=== PATIENT | male | born 1965 | race Two or more races ===

== ENCOUNTER 2020-02-13 14:26 | Inpatient (IN) | payer OTHER ==
[~2020-02-13] VITALS: Ht 180.3 cm; Wt 95.2 kg
[2020-02-13 15:22] LABS: Basophils # (auto) 0.1 10 ^3/uL (0-0.2); Basophils % (auto) 0.7 % (0.0-2.0); Eosinophils # (auto) 0.1 10 ^3/uL (0-0.8); Hematocrit 44.5 % (41.0-53.0); Lymphocytes # (auto) 2.9 10 ^3/uL (0.4-5.4); Lymphocytes % (auto) 32.5 % (10.0-50.0); Mean Corpuscular Hgb Conc. 33.7 g/dL (32.0-36.0); Mean Corpuscular Volume 82.9 fL (80.0-100.0); Monocytes # (auto) 0.6 10 ^3/uL (0-1.3); Monocytes % (auto) 7.1 % (0.0-12.0); Neutrophils # (auto) 5.2 10 ^3/uL (1.6-8.6); Neutrophils % (auto) 58.7 % (37.0-80.0); Nucleated Red Blood Cells % 0.1 %; Platelet Count (auto) 236 10^3/uL (140-450); Red Blood Cells 5.37 10^6/uL (4.5-5.90); Red Cell Distribution Width 14.4 % (11.8-14.3); White Blood Cell 8.9 10^3/uL (4.4-10.8)
[2020-02-13 15:40] LABS: Alanine Aminotransferase 22 U/L (16-61); Albumin 3.8 g/dL (3.4-5.0); Anion Gap 6 (5-15); BUN/Creatinine Ratio 16.8; Blood Urea Nitrogen 20 mg/dL (7-18); Calcium 8.7 mg/dL (8.5-10.1); Carbon Dioxide 26 mmol/L (21-32); Chloride 106 mmol/L (98-107); GFR African American 82 mL/min; GFR Non-African American 68 mL/min; Glucose 78 mg/dL (74-106); Magnesium 2.3 mg/dL (1.6-2.6); Potassium 3.3 mmol/L (3.5-5.1); Sodium 138 mmol/L (136-145)
[2020-02-13 15:46] LABS: Alkaline Phosphatase 67 U/L (45-117); Aspartate Aminotransferase 18 U/L (15-37); Bilirubin, Total 0.5 mg/dL (0.2-1.0)
[2020-02-13] MEDS ORDERED: ONDANSETRON HCL 4 MG/2 ML VIAL IV PRN (16:45)
[2020-02-13] MEDS ORDERED: NITROGLYCERIN 0.4 MG SL TAB SL PRN (16:45)
[2020-02-13] MEDS ORDERED: D5W/SOD CHL 0.45% 1,000 ML IV ONE (16:45)
--- NOTE | 2020-02-13 18:10 | NUR ---
PATIENT UP TO FLOOR FROM ER. Telemetry admit from ER MATT VASQUEZ admitted to Telemetry unit after SBAR received FROM [facility]. Patient oriented to DAO MCNEIL RN primary RN, unit, ROOM AND BED 244-5 and unit policies regarding patient care. Patient now on continuous telemetry monitoring, tele box # 12 and telemetry reading on arrival to unit is SINUS BRADYCARDIA. Patient weighed by bedscale and encouraged to call if they need ANY ASSISTANCE. All questions and concerns addressed, patient verbalized understanding.
[2020-02-13 19:00] VITALS: BP 132/82
--- NOTE | 2020-02-13 19:42 | NUR ---
DR. Wenceslao VASQUEZ AT BEDSIDE FOR CARDIOLOGY CONSULT
--- NOTE | 2020-02-13 20:10 | NUR ---
Notified MD Wolf that patient appeared to be in 2nd degree, type 1 HB and was asymptomatic. MD Wolf said patient would be having Cardiolite stress test.
[2020-02-13] MEDS ORDERED: HCTZ 25 MG TAB PO ONE (20:15)
--- NOTE | 2020-02-13 21:50 | NUR ---
Care endorsed to NEHEMIAS Thompson.
[2020-02-13 22:00] VITALS: BP 129/75
[2020-02-13] MEDS: TERAZOSIN HCL 1 MG CAP PO SCH (22:00)
[2020-02-13] MEDS ORDERED: TERA10CA36 PO (23:07)
[2020-02-14] MEDS: ATORVASTATIN 20 MG TAB PO SCH ×2 (00:04→22:21)
--- NOTE | 2020-02-14 01:30 | NUR ---
Received report from Tele automatic beading lathe operator - Patient's Cardiac rhythm, 3rd degree HB with HR sustained in the high 40s. Patient denies chest pain, lightheadedness, and shortness. Telephone placed to Dr. Aris philippe; awaiting call back.
--- NOTE | 2020-02-14 02:05 | NUR ---
EKG indicates: Second degree AV block Type 11. Patient continues to deny chest pain, Shortness of breath, and dizziness.
[2020-02-14] MEDS ORDERED: ATROPINE SULF 1 MG/10ml SYR IV ONE ×4 (04:45→05:45)
--- NOTE | 2020-02-14 04:50 | NUR ---
Dr. Wolf notified of patient's status. New order obtained for Atropine 1 mg IVP PRN for HR < 30. Patient is currently 2nd degree HB with HR 47. No distress noted.
[2020-02-14 05:00] VITALS: BP 122/78
[2020-02-14 06:17] LABS: Basophils # (auto) 0 10 ^3/uL (0-0.2); Basophils % (auto) 0.4 % (0.0-2.0); Eosinophils # (auto) 0.1 10 ^3/uL (0-0.8); Eosinophils % (auto) 1.9 % (0.0-7.0); Hematocrit 42.7 % (41.0-53.0); Hemoglobin 14.4 g/dL (13.5-17.5); Lymphocytes # (auto) 2.5 10 ^3/uL (0.4-5.4); Lymphocytes % (auto) 37.3 % (10.0-50.0); Mean Corpuscular Hemoglobin 27.9 pg (28.0-32.0); Mean Corpuscular Hgb Conc. 33.8 g/dL (32.0-36.0); Mean Corpuscular Volume 82.6 fL (80.0-100.0); Monocytes # (auto) 0.5 10 ^3/uL (0-1.3); Monocytes % (auto) 7.4 % (0.0-12.0); Neutrophils # (auto) 3.5 10 ^3/uL (1.6-8.6); Platelet Count (auto) 229 10^3/uL (140-450); Red Blood Cells 5.17 10^6/uL (4.5-5.90); Red Cell Distribution Width 14.4 % (11.8-14.3); White Blood Cell 6.6 10^3/uL (4.4-10.8)
[2020-02-14 06:28] LABS: Potassium 3.3 mmol/L (3.5-5.1)
[2020-02-14 06:36] LABS: Albumin 3.6 g/dL (3.4-5.0); BUN/Creatinine Ratio 15.6; Bilirubin, Total 0.8 mg/dL (0.2-1.0); Calcium 8.5 mg/dL (8.5-10.1); Total Protein 7.3 g/dL (6.4-8.2)
--- NOTE | 2020-02-14 07:00 | NUR ---
Patient resting comfortably no distress noted; Cardiac rhythm - 2nd AVB Type I; HR 59. Patient's status endorsed to AM RN.
[2020-02-14 09:00] VITALS: BP 121/73
[2020-02-14] MEDS: ASPirin 81 mg TAB PO SCH (10:10)
[2020-02-14] MEDS: TERAZOSIN HCL 1 MG CAP PO SCH ×2 (10:10→22:21)
[2020-02-14] MEDS: HCTZ 25 MG TAB PO SCH (10:10)
[2020-02-14] MEDS: ENOXAPARIN SOD 40 MG/0.4 ML SYRINGE SC SCH (10:11)
[2020-02-14] MEDS ORDERED: POTASSIUM CHL 20 Meq TABLET PO ONE (10:45)
[2020-02-14 12:57] VITALS: BP 125/66
[2020-02-14 17:00] VITALS: BP 142/80
--- NOTE | 2020-02-14 19:00 | NUR ---
Opening Shift Note Assumed care of patient, awake and alert. No S/S of distress/SOB or pain. Instructed on POC and to call for assist PRN, will continue to monitor for changes Q1hr and PRN. Patient Pt in lowest possible position with call light within reach.
--- NOTE | 2020-02-14 19:13 | NUR ---
EKG patients 0735 EKG showed a 3/AVB, and heart rate of heart rate of 33bpm. Dr. Hurst has been notified.
[2020-02-14 20:00] VITALS: BP 116/82
--- NOTE | 2020-02-14 20:50 | NUR ---
Telemetry strip read vtach Patient was lying in bed when started running vtach. Patient did not complain of pain, SOB, or any other symptoms. Patients bpm went up to 170, and at time of telemetry reading was 118. Patient was in vtach for around [address] Wolf paged. Dr Hurst notified, no orders given. Will wait for call from Dr. Wolf and will continue to monitor patient.
--- NOTE | 2020-02-14 21:11 | NUR ---
EKG done. Pt had a run of [employer] EKG shows 2/AVB mobitz 2 with a heart rate of 63 and with nonspecific T abnormalities. Will notify MD. Will continue to monitor patient. Heart rate currently 58. Addendum: 02/14/20 at 2222 by Taisha Almeida RN Pt denies pain, SOB, or any symptoms at this time. Addendum: 02/14/20 at 2253 by Taisha Almeida RN MD Dr. Hurst notified. Will wait for MD Dr. Luciano wisdom.
[2020-02-14 22:00] VITALS: BP 116/82
[2020-02-15 05:34] VITALS: BP 125/91
[2020-02-15 07:31] LABS: Basophils # (auto) 0 10 ^3/uL (0-0.2); Basophils % (auto) 0.5 % (0.0-2.0); Eosinophils # (auto) 0.1 10 ^3/uL (0-0.8); Eosinophils % (auto) 1.5 % (0.0-7.0); Hematocrit 44.7 % (41.0-53.0); Hemoglobin 14.8 g/dL (13.5-17.5); Lymphocytes # (auto) 2.3 10 ^3/uL (0.4-5.4); Lymphocytes % (auto) 30.2 % (10.0-50.0); Mean Corpuscular Hemoglobin 27.6 pg (28.0-32.0); Mean Corpuscular Hgb Conc. 33.1 g/dL (32.0-36.0); Mean Corpuscular Volume 83.4 fL (80.0-100.0); Monocytes # (auto) 0.6 10 ^3/uL (0-1.3); Monocytes % (auto) 7.9 % (0.0-12.0); Neutrophils # (auto) 4.6 10 ^3/uL (1.6-8.6); Neutrophils % (auto) 59.9 % (37.0-80.0); Nucleated Red Blood Cells % 0.1 %; Platelet Count (auto) 252 10^3/uL (140-450); Red Blood Cells 5.37 10^6/uL (4.5-5.90); Red Cell Distribution Width 14.5 % (11.8-14.3); White Blood Cell 7.7 10^3/uL (4.4-10.8)
[2020-02-15 07:57] LABS: Albumin 3.9 g/dL (3.4-5.0); Calcium 9.2 mg/dL (8.5-10.1); Potassium 3.5 mmol/L (3.5-5.1)
[2020-02-15 08:00] LABS: BUN/Creatinine Ratio 12.8; Bilirubin, Total 0.7 mg/dL (0.2-1.0); Total Protein 7.9 g/dL (6.4-8.2)
[2020-02-15 09:00] VITALS: BP 123/81
[2020-02-15] MEDS: ASPirin 81 mg TAB PO SCH (10:38)
[2020-02-15] MEDS: HCTZ 25 MG TAB PO SCH (10:40)
[2020-02-15] MEDS: TERAZOSIN HCL 1 MG CAP PO SCH ×2 (10:41→21:39)
[2020-02-15] MEDS: ENOXAPARIN SOD 40 MG/0.4 ML SYRINGE SC SCH (10:41)
--- NOTE | 2020-02-15 12:00 | NUR ---
NOTIFICATION OF CHANGE CONDITION CONTACTED AND SPOKE TO DR. Wenceslao VASQUEZ IN REGARDS TO PATIENTS EKG STRIPS/TELEMETRY MONITORING OF 3 DEGREE AV BLOCK, 2ND DEGREE AV BLOCK, 8 BEAT RUN OF V TACH (ASSOCIATE PRODUCT MANAGER 02/14/2020), PATIENT HAS MINIMAL CHEST PAIN OF 3-5/10 IN 0-10 PAIN SCALE. PATIENT REFUSED PAIN MEDICATIONS. DR. VASQUEZ ORDERED BNP, TROPONIN LABS, POSSIBLE ANGIO/LEFT HEART CATHETERIZATION, WHICH HE WILL DISCUSS WITH THE PATIENT. DR. VASQUEZ STATED HE WILL VISIT WITH THE PATIENT, AND DISCUSS OPTIONS. PATIENT IS ALSO SCHEDULED FOR CARDIOLITE STRESS TEST ON 02/16/2020.
[2020-02-15] MEDS ORDERED: POTASSIUM CHL 20 Meq TABLET PO ONE (12:30)
[2020-02-15 13:00] VITALS: BP 122/77
--- NOTE | 2020-02-15 14:39 | NUR ---
MD AWARE PATIENTS HEART RATE WENT UP TO 170-211BPM, PATIENT WAS OBSERVED ASYMPTOMATIC, WAS WASHING HIS HANDS, NO COMPLAINTS OF CHEST PAIN, SHORTNESS OF BREATH, DIZZINESS, FEELING FAINT, AND OR PAIN. DR. Keturah VASQUEZ OBSERVED THE CHANGE IN RATE AT NURSING STATION.
[2020-02-15 17:00] VITALS: BP 129/59
--- NOTE | 2020-02-15 19:30 | NUR ---
OPENING NOTE Received report from day shift RN.Patient is A&O X's 4 with no s/s of distress and denies any pain. Bed is in lowest/locked position with side rails up X's 2 and call light is within reach of patient Guards are present at bedside. Educated patient that he will not be able to eat or drink anything after midnight for the stress test in the morning. Patient verbalized understanding. Will continue care.
[2020-02-15] MEDS: MAGNESIUM OXIDE 400 MG TAB PO SCH (21:39)
[2020-02-15] MEDS: ATORVASTATIN 20 MG TAB PO SCH (21:39)
[2020-02-15 22:00] VITALS: BP 128/69
--- NOTE | 2020-02-15 23:46 | NUR ---
NURSING NOTE Patient's HR went down to 36-38 but did not sustain. Assessed patient. Patient is A&O X's 4 with no s/s of distress and reports no SOB or CP. Patient asymptomatic. Educated patient to use call light if he experiences any changes. Patient verbalized understanding. Patient's HR increased back up to the 70's when I was present at bedside. Will continue care.
--- NOTE | 2020-02-16 | NUR ---
PATIENT NPO Patient aware and food/drinks not at bedside. Will continue care
[2020-02-16 05:00] VITALS: BP 108/60
--- NOTE | 2020-02-16 05:32 | NUR ---
SPOKE WITH PAYROLL REPRESENTATIVE Received the password of "[place]" first. updated social organization professor on patient's status.
--- NOTE | 2020-02-16 05:51 | NUR ---
IV INSERTION IV access obtained, via clean sterile technique by inserting 20 gauge catheter at left hand after one attempt. IV secured properly. No trauma to site. Patient tolerated well.
--- NOTE | 2020-02-16 07:45 | NUR ---
Opening Shift Note Assumed care of patient, awake and alert. No S/S of distress/SOB or pain. For safety, patients bed is locked, in the lowest position, with 2 side rails up and the call light with in reach. armored car guard and driver at bedside. Instructed on POC and to call for assist PRN, will continue to monitor for any changes in condition.
[2020-02-16 08:00] VITALS: BP 115/79
--- NOTE | 2020-02-16 08:44 | NUR ---
Stress lab called and stated they needed a current EKG for the patients stress test he is going to have this morning. Performed EKG and placed in chart.
[2020-02-16 09:00] VITALS: BP 115/79
[2020-02-16 09:20] LABS: BUN/Creatinine Ratio 14.7; Calcium 9.3 mg/dL (8.5-10.1); Magnesium 2.6 mg/dL (1.6-2.6); Potassium 3.7 mmol/L (3.5-5.1)
--- NOTE | 2020-02-16 09:40 | NUR ---
SPOKE WITH STRESS LAB THEY STATED THAT SINCE THE PATIENTS HEART RHYTHM IS THIRD DEGREE HEART BLOCK AT THIS TIME THE STRESS TEST IS CONTRAINDICATED AND THEY HAVE A CALL OUT TO DR. VASQUEZ TO NOTIFY HIM.
--- NOTE | 2020-02-16 11:00 | NUR ---
Dr. Wenceslao Wolf agreed to cancel the stress test at this time and start patient on a diet. Will place orders and carry out
[2020-02-16] MEDS: ASPirin 81 mg TAB PO SCH (11:17)
[2020-02-16] MEDS: HCTZ 25 MG TAB PO SCH (11:17)
[2020-02-16] MEDS: MAGNESIUM OXIDE 400 MG TAB PO SCH ×2 (11:18→22:18)
[2020-02-16] MEDS: TERAZOSIN HCL 1 MG CAP PO SCH ×2 (11:18→22:18)
[2020-02-16] MEDS: ENOXAPARIN SOD 40 MG/0.4 ML SYRINGE SC SCH (11:18)
[2020-02-16 13:00] VITALS: BP 121/74
[2020-02-16 17:00] VITALS: BP 107/58
--- NOTE | 2020-02-16 19:25 | NUR ---
Opening Shift Note Received report from Dora DEL CID. Assumed care of patient, awake and alert. security guard supervisor at bedside. No S/S of distress/SOB or pain. Instructed on POC and to call for assist PRN, will continue to monitor for changes Q1hr and PRN.
[2020-02-16 21:54] VITALS: BP 115/74
[2020-02-16] MEDS: ATORVASTATIN 20 MG TAB PO SCH (22:18)
--- NOTE | 2020-02-16 23:55 | NUR ---
Advised nothing by mouth after midnight, patient verbalized understanding.
[2020-02-17 05:00] VITALS: BP 117/68
[2020-02-17 05:32] LABS: Basophils # (auto) 0 10 ^3/uL (0-0.2); Basophils % (auto) 0.3 % (0.0-2.0); Eosinophils # (auto) 0.1 10 ^3/uL (0-0.8); Eosinophils % (auto) 1.1 % (0.0-7.0); Hematocrit 45.8 % (41.0-53.0); Hemoglobin 15.4 g/dL (13.5-17.5); Lymphocytes % (auto) 31.9 % (10.0-50.0); Mean Corpuscular Hemoglobin 27.9 pg (28.0-32.0); Mean Corpuscular Hgb Conc. 33.5 g/dL (32.0-36.0); Mean Corpuscular Volume 83.3 fL (80.0-100.0); Monocytes # (auto) 0.7 10 ^3/uL (0-1.3); Monocytes % (auto) 7.3 % (0.0-12.0); Neutrophils # (auto) 5.6 10 ^3/uL (1.6-8.6); Neutrophils % (auto) 59.4 % (37.0-80.0); Nucleated Red Blood Cells % 0.3 %; Platelet Count (auto) 253 10^3/uL (140-450); Red Cell Distribution Width 14.8 % (11.8-14.3); White Blood Cell 9.4 10^3/uL (4.4-10.8)
[2020-02-17 05:47] LABS: INR 1.05 (0.9-1.15); Partial Thromboplastin Time 28.2 sec (23.64-32.05)
[2020-02-17 05:49] LABS: BUN/Creatinine Ratio 15.5; Calcium 9.2 mg/dL (8.5-10.1); Potassium 3.6 mmol/L (3.5-5.1)
--- NOTE | 2020-02-17 07:15 | NUR ---
OPENING SHIFT NOTE Assumed care of patient from lieutenant shift supervisor RN. Patient is an inmate, guards at bedside. Patient is alert and oriented x4, no signs of distress noted, denies pain. Patient was updated on the plan of care and verbalized understanding. Cuffs noted to the left upper extremity and bilateral lower extremities. no circulatory issues or skin breakdown noted. Bed is locked, in the lowest position, side rails up x2 and call light is in reach. Patient was encouraged to call for assistance as needed.
[2020-02-17 08:09] VITALS: BP 128/80
--- NOTE | 2020-02-17 08:35 | NUR ---
PATIENT TAKEN TO [facility] accompanied by RN, laya and two guards. Patient tolerated well, no signs of distress noted. Care endorsed to veterinarian laboratory animal care RN.
[2020-02-17] MEDS ORDERED: LIDOCAINE 2%HCL (LOCAL ANESTH.) INJ 20ML MDV ONE (08:57)
[2020-02-17] MEDS ORDERED: IODIXANOL 320MG/ML 100ML BTL IV ONE (08:57)
[2020-02-17] MEDS ORDERED: IOHEXOL 350 MG/ML 100ML IJ ONE (09:07)
--- NOTE | 2020-02-17 10:00 | NUR ---
MEDICATION patient is currently in the Craft Superintendent, medications ordered for 1000 will be given as ordered when the patient returns from procedure.
[2020-02-17] MEDS ORDERED: ANGIOMAX 250 MG VIAL IV ONE (10:09)
[2020-02-17] MEDS ORDERED: VERAPAMIL 2.5MG/ML INJ 2ML VIAL IV ONE (10:09)
[2020-02-17] MEDS ORDERED: fentaNYL CITRATE 100 MCG/2 ML VL ONE (10:09)
[2020-02-17] MEDS ORDERED: MIDAZOLAM HCL 1MG/1ML-2 ML VIAL ONE (10:10)
[2020-02-17] MEDS ORDERED: SODIUM CHL 0.9% 0 ML ONE (10:10)
--- NOTE | 2020-02-17 10:15 | NUR ---
Patient off the floor for procedure Addendum: 02/17/20 at 1102 by CORBIN VALLEJO RN Amended: Links added.
[2020-02-17] MEDS ORDERED: HEPARIN SODIUM (PORCINE) 5000 UNITS/ML 1ML VIAL ONE (10:51)
--- NOTE | 2020-02-17 12:30 | NUR ---
PATIENT BACK FROM CONCESSIONIST No signs of distress noted. Patient has vasc band on right wrist. 2ml removed per protocol, no bleeding noted. Will continue to remove air per protocol.
--- NOTE | 2020-02-17 12:45 | NUR ---
VASC BAND 2ml air aspirated per protocol. no signs of bleeding or circulation issues noted. Patient tolerated well.
[2020-02-17 13:00] VITALS: BP 112/74
--- NOTE | 2020-02-17 13:06 | NUR ---
VASC BAND 2ml air aspirated per protocol. no signs of bleeding or circulation issues noted. Patient tolerated well.
[2020-02-17] MEDS: TERAZOSIN HCL 1 MG CAP PO SCH ×2 (13:10→21:48)
[2020-02-17] MEDS: ASPirin 81 mg TAB PO SCH (13:10)
[2020-02-17] MEDS: MAGNESIUM OXIDE 400 MG TAB PO SCH ×2 (13:10→21:49)
[2020-02-17] MEDS: HCTZ 25 MG TAB PO SCH (13:11)
--- NOTE | 2020-02-17 13:21 | NUR ---
VASC BAND 2ml air aspirated per protocol. no signs of bleeding or circulation issues noted. Patient tolerated well.
--- NOTE | 2020-02-17 13:40 | NUR ---
VASC BAND 2ml air aspirated per protocol. no signs of bleeding or circulation issues noted. Patient tolerated well.
--- NOTE | 2020-02-17 14:00 | NUR ---
VASC BAND REMOVED Patient tolerated well. Gauze and tegaderm applied, no signs of bleeding noted.
[2020-02-17 17:00] VITALS: BP 112/67
--- NOTE | 2020-02-17 19:20 | NUR ---
Opening Shift Note Received report from Apoorva DEL CID. Assumed care of patient, awake and alert. Senior Care guards at bedside. Right wrist dressing c/d/i. No S/S of distress/SOB or pain. Instructed on POC and to call for assist PRN, will continue to monitor for changes Q1hr and PRN.
[2020-02-17] MEDS: ATORVASTATIN 20 MG TAB PO SCH (21:49)
[2020-02-17 22:00] VITALS: BP 100/61
[2020-02-18 05:00] VITALS: BP 110/70
[2020-02-18 05:42] LABS: Basophils # (auto) 0 10 ^3/uL (0-0.2); Basophils % (auto) 0.4 % (0.0-2.0); Eosinophils # (auto) 0.1 10 ^3/uL (0-0.8); Eosinophils % (auto) 1.2 % (0.0-7.0); Hematocrit 46.2 % (41.0-53.0); Hemoglobin 15.2 g/dL (13.5-17.5); Lymphocytes # (auto) 2.5 10 ^3/uL (0.4-5.4); Lymphocytes % (auto) 28.2 % (10.0-50.0); Mean Corpuscular Hemoglobin 27.6 pg (28.0-32.0); Mean Corpuscular Hgb Conc. 32.9 g/dL (32.0-36.0); Mean Corpuscular Volume 83.9 fL (80.0-100.0); Monocytes # (auto) 0.6 10 ^3/uL (0-1.3); Monocytes % (auto) 6.6 % (0.0-12.0); Neutrophils # (auto) 5.8 10 ^3/uL (1.6-8.6); Neutrophils % (auto) 63.6 % (37.0-80.0); Nucleated Red Blood Cells % 0.2 %; Platelet Count (auto) 246 10^3/uL (140-450); Red Blood Cells 5.51 10^6/uL (4.5-5.90); Red Cell Distribution Width 14.7 % (11.8-14.3)
[2020-02-18 06:01] LABS: INR 1.04 (0.9-1.15); Partial Thromboplastin Time 27.9 sec (23.64-32.05)
[2020-02-18 06:03] LABS: Calcium 9.3 mg/dL (8.5-10.1); Potassium 3.7 mmol/L (3.5-5.1)
[2020-02-18 06:05] LABS: BUN/Creatinine Ratio 17.5
[2020-02-18] MEDS ORDERED: LIDOCAINE 2%HCL (LOCAL ANESTH.) INJ 20ML MDV ONE (07:20)
[2020-02-18] MEDS ORDERED: fentaNYL CITRATE 100 MCG/2 ML VL ONE (07:41)
[2020-02-18] MEDS ORDERED: VANCOMYCIN HCL 1000 MG VL ONE (07:41)
[2020-02-18] MEDS ORDERED: MIDAZOLAM HCL 1MG/1ML-2 ML VIAL ONE (07:41)
[2020-02-18] MEDS ORDERED: ATROPINE SULF 1 MG/10ml SYR ONE (07:41)
[2020-02-18] MEDS ORDERED: VANCOMYCIN 1GM/250ML 250 ML IV ONE (07:42)
--- NOTE | 2020-02-18 07:48 | NUR ---
Patient is currently down in concrete laborer for procedure.
[2020-02-18 08:00] VITALS: BP 125/92
[2020-02-18] MEDS ORDERED: IOHEXOL 350 MG/ML 100ML IJ ONE (08:09)
[2020-02-18 08:35] VITALS: BP_SYST 125; BP_SYST 140; BP_DIAS 68; BP_DIAS 92
[2020-02-18] MEDS: TERAZOSIN HCL 1 MG CAP PO SCH ×2 (10:00→21:57)
[2020-02-18] MEDS: ASPirin 81 mg TAB PO SCH (10:00)
--- NOTE | 2020-02-18 11:25 | NUR ---
[facility] Patient is alert and oriented. Patient states left upper chest area feels sore , no c/o pin Bed at lowest locked position and call light within reach. Guards at bedside for safety. VS:BP 131/89, HR 70, RR 18, SPO2 98% Addendum: 02/18/20 at 1945 by Anneliese Solomon RN 11:25 Dressing to left upper chest Sling is safely positioned . Left upper chest dressing is clean dry and intact, no c/o pain. no redness, no swelling at site.
--- NOTE | 2020-02-18 11:30 | NUR ---
IV removal to the right hand due to leaking. IV DC'd with clean sterile technique, catheter fully intact. Pressure dressing applied to site. Patient tolerated well.
[2020-02-18] MEDS: MAGNESIUM OXIDE 400 MG TAB PO SCH ×2 (12:01→21:58)
[2020-02-18] MEDS: HCTZ 25 MG TAB PO SCH (12:02)
[2020-02-18] MEDS: ceFAZolin 1GM/50ML 50 ML IV SCH ×2 (12:43→17:18)
[2020-02-18 13:00] VITALS: BP 131/89
--- NOTE | 2020-02-18 15:12 | NUR ---
NUTRITION ASSESSMENT NOTES Please refer to link notes of nutrition screen form filed under the intervention section of the plan of care for further details. Est. Energy Needs: 4691-9083 kcal (20-25 kcal/kg BW). Est. Protein Needs: 95-105 gms/day (1.0-1.1 gms/kg BW). Will continue to monitor pertinent labs and reassess nutrient need prn Addendum: 02/18/20 at [address] Amended: Links added.
[2020-02-18] MEDS: SOD CHL 0.45% 1,000 ML IV SCH ×2 (17:17→21:55)
[2020-02-18 17:31] VITALS: BP 115/57
--- NOTE | 2020-02-18 19:25 | NUR ---
Opening note pt found watch tv in semi fowlers with HOB at 30 degrees. respirations are even and nonlabored on room air. this patient is an inmate, and has a federal officer at the bedside. pt is A&Ox4. pt is handcuffed to hospital bed. bed in low locked position, call light within reach.
--- NOTE | 2020-02-18 19:45 | NUR ---
closing note Patient is comfortably resting in bed, no c/o pain. Breath sounds are even and unlabored. No s/s of distress/sob noted. Bed at lowest locked position and call light within reach. Care endorsed to NOC RN.
--- NOTE | 2020-02-18 20:40 | NUR ---
pt is complaining pain at left upper chest, and rates pain at about a 7/10. pt will be medicated for pain accordingly.
[2020-02-18] MEDS: HYDROcodone-ACET 10/325MG TAB PO PRN (20:46)
[2020-02-18] MEDS: VANCOMYCIN 1GM/250ML 250 ML IV SCH (21:55)
[2020-02-18] MEDS: ATORVASTATIN 20 MG TAB PO SCH (21:58)
[2020-02-18 22:00] VITALS: BP 131/87
[2020-02-19] MEDS: ceFAZolin 1GM/50ML 50 ML IV SCH ×4 (00:06→17:33)
--- NOTE | 2020-02-19 00:50 | NUR ---
Endorsed care to Luisa DEL CID
--- NOTE | 2020-02-19 00:56 | NUR ---
ASSUMED CARE OF PATIENT Assumed care of patient after receiving report. Patient asleep in bed, resting comfortably. Will continue to monitor.
--- NOTE | 2020-02-19 02:58 | NUR ---
Patient complaints of having upset stomach associated with sweating. Patient was offered PRN zofran for nausea, which he declined at this time stating it came and went. No complaints of pain. Will continue to monitor.
[2020-02-19 05:00] VITALS: BP 123/75
[2020-02-19] MEDS: SOD CHL 0.45% 1,000 ML IV SCH ×3 (05:40→21:30)
--- NOTE | 2020-02-19 07:00 | NUR ---
Care endorsed Care endorsed to NEHEMIAS Chowdhury. Patient resting comfortably in bed, with bed in lowest position x2 bed rails. No S/S of pain, distress or SOB.
[2020-02-19 07:40] LABS: BUN/Creatinine Ratio 16.8; Calcium 8.6 mg/dL (8.5-10.1)
--- NOTE | 2020-02-19 07:49 | NUR ---
Opening Note Assumed pt care from [facility] nurse. Pt is a/ox4 with no s/s of distress or SOB. Pt is currently sitting upright in bed with no complaints at this time. Pt's R arm is currently in sling. Dressing to R arm is clean, dry and intact. Discussed POC with pt; pt verbalized understanding. Safety measures maintained with call light within reach, bed in lowest position and side rails up. Will continue to monitor.
--- NOTE | 2020-02-19 08:50 | NUR ---
Dr Wolf At Bedside MD to see pt. [employer] provider relations representative at bedside to assess pacemaker. Per MD, pacemaker is working well. MD further states that pt is cleared and prescriptions from MD are in chart. Will continue to monitor.
--- NOTE | 2020-02-19 08:51 | NUR ---
Dr. Wolf at beside, outside service to check pacemaker.
[2020-02-19 09:00] VITALS: BP 120/80
[2020-02-19] MEDS: MAGNESIUM OXIDE 400 MG TAB PO SCH ×2 (09:21→21:50)
[2020-02-19] MEDS: VANCOMYCIN 1GM/250ML 250 ML IV SCH (09:21)
[2020-02-19] MEDS: HCTZ 25 MG TAB PO SCH (09:21)
[2020-02-19] MEDS: ASPirin 81 mg TAB PO SCH (09:23)
[2020-02-19] MEDS: TERAZOSIN HCL 1 MG CAP PO SCH ×2 (09:23→21:49)
[2020-02-19 13:00] VITALS: BP 120/89
[2020-02-19] MEDS: HYDROcodone-ACET 10/325MG TAB PO PRN ×2 (15:39→21:50)
[2020-02-19 17:48] VITALS: BP 136/72
--- NOTE | 2020-02-19 19:25 | NUR ---
opening note pt resting in semi fowlers with HOB elevated at 30 degrees. pt is A&Ox4. respirations are even and nonlabored on room air. POC discussed with patient. pt is an inmate, and federal employees are at the bedside. call light is within reach.
--- NOTE | 2020-02-19 21:35 | NUR ---
pain pt c/o lower back pain and pain at upper left chest, rating of 7/10. pt will be medicated upon next available medication administration.
[2020-02-19] MEDS: ATORVASTATIN 20 MG TAB PO SCH (21:50)
[2020-02-19 22:00] VITALS: BP 125/82
[2020-02-19] MEDS ORDERED: SOD CHL 0.45% WITH 20MEQ KCL 1,000 ML IV ONE (23:03)
[2020-02-20] MEDS: ceFAZolin 1GM/50ML 50 ML IV SCH ×2 (00:17→05:18)
[2020-02-20] MEDS: SOD CHL 0.45% WITH 20MEQ KCL 1,000 ML IV SCH ×2 (00:18→08:32)
[2020-02-20] MEDS: HYDROcodone-ACET 10/325MG TAB PO PRN ×2 (03:17→03:53)
[2020-02-20 05:00] VITALS: BP 127/78
--- NOTE | 2020-02-20 07:40 | NUR ---
Opening Note Assumed pt care from NOC RN. Pt is a/ox4 with no s/s of distress or SOB. Pt is current sitting upright in bed with mild c/o pain to L chest at incision site, 01/19; provided ice pack to pt. Dressing is clean, dry and intact. L arm is currently in sling. Discussed POC with pt; pt verbalized understanding. Safety measures maintained with call light within reach, bed in lowest position and side rails up. Will continue to monitor for changes.
[2020-02-20 09:00] VITALS: BP 103/63
--- NOTE | 2020-02-20 09:14 | NUR ---
Dr. Parrish at the bedside. to see patient, plans to d'c today. will continue to monitor and implement.
[2020-02-20] MEDS ORDERED: HCTZ25T PO (09:39)
[2020-02-20] MEDS ORDERED: ASPI81CH43 PO (09:39)
[2020-02-20] MEDS ORDERED: MAGN400T21 PO (09:39)
[2020-02-20] MEDS ORDERED: ATOR20TA50 PO (09:39)
[2020-02-20] MEDS ORDERED: DOX100T GT (09:39)
[2020-02-20 09:44] VITALS: BP 103/63
[2020-02-20] MEDS: TERAZOSIN HCL 1 MG CAP PO SCH (09:58)
[2020-02-20] MEDS: MAGNESIUM OXIDE 400 MG TAB PO SCH (09:58)
[2020-02-20] MEDS: HCTZ 25 MG TAB PO SCH (09:58)
[2020-02-20] MEDS: ASPirin 81 mg TAB PO SCH (09:58)
--- NOTE | 2020-02-20 10:26 | NUR ---
Iv removal and tele box removal Iv to left hand was d'c. catheter was removed fully intact. Site is asymptomatic. Pressure applied with gauze for 3 minutes. Wrapped in coband. Patient instructed to keep dressing on for 30 minutes. Tele box number 76 was removed. Sent back to monitor techs.
--- NOTE | 2020-02-20 10:28 | NUR ---
D'C Patient discharged. Iv and tele box removed prior to discharge. Patient provided instructions, prescriptions, education material, follow up information and all questions were answered. Packet provided to guards. Awaiting transportation back to alf.
== END 2020-02-20 12:47 | DRG 243 ==
LOC: ER 14:26 → EEVIPCON 14:26 → EDBD 14:26 → TELE 14:27 → TELE-E-ADS 17:59 → TELE-WESTW 02-16 19:34
PROVIDERS: ADMIT Internal Medicine; ATTEND Internal Medicine
PROC: 4A023N7 Measurement of Cardiac Sampling and Pressure, Left Heart, Percutaneous Approach (ICD-10-PCS; 2020-02-17)
PROC: B2111ZZ Fluoroscopy of Multiple Coronary Arteries using Low Osmolar Contrast (ICD-10-PCS; 2020-02-17)
PROC: B2151ZZ Fluoroscopy of Left Heart using Low Osmolar Contrast (ICD-10-PCS; 2020-02-17)
PROC: 4A133BC Monitoring of Arterial Pressure, Coronary, Percutaneous Approach (ICD-10-PCS; 2020-02-17)
PROC: 0JH606Z Insertion of Pacemaker, Dual Chamber into Chest Subcutaneous Tissue and Fascia, Open Approach (ICD-10-PCS; principal; 2020-02-18)
PROC: 02HK3JZ Insertion of Pacemaker Lead into Right Ventricle, Percutaneous Approach (ICD-10-PCS; 2020-02-18)
PROC: 02H63JZ Insertion of Pacemaker Lead into Right Atrium, Percutaneous Approach (ICD-10-PCS; 2020-02-18)
PROC: B312YZZ Fluoroscopy of Left Subclavian Artery using Other Contrast (ICD-10-PCS; 2020-02-18)
PROC: 4B02XSZ Measurement of Cardiac Pacemaker, External Approach (ICD-10-PCS; 2020-02-18)
DX: I44.2 Atrioventricular block, complete (principal); I25.110 Atherosclerotic heart disease of native coronary artery with unstable angina pectoris; I10 Essential (primary) hypertension; E78.00 Pure hypercholesterolemia, unspecified; E78.5 Hyperlipidemia, unspecified; I47.2 Ventricular tachycardia; E87.6 Hypokalemia; I49.5 Sick sinus syndrome; Z79.899 Other long term (current) drug therapy
CPT/HCPCS: 33208; 36415; 71045; 80048; 80053; 83735; 83880; 84443; 84484; 85025; 85610; 85730; 93005; 93458; 99152; 99153; C1785; G0378; J0690; J2250; Q9967

== ENCOUNTER → 2021-11-03 | Day surgery (SDC) | payer OTHER ==
[~2021-11-03] MED LIST: ASPI81CH43 PO; ATOR20TA50 PO; CIPROFLOXACIN 400MG/200ML 200 ML IV ONE; DOX100T GT; DexAMETHasone SOD PHOS 10MG/1ML VIAL INJ ONE; GENTAMICIN SULF 80 MG/2 ML VIAL ONE; GENTAMICIN SULFATE 80 MG in D5W 5% 100 ML IV ONE; HYDR25TA5 PO; HYDROmorphone HCL 2 MG/ML VL IV PRN; LABETALOL HCL 5 MG/ML 4ML SYRINGE IV PRN; MAGN241.4 PO; METOCLOPRAMIDE HCL 5MG/ml INJ 2ml VIAL IV PRN; MIDAZOLAM HCL 2MG/2ML 2ml VIAL (1mg/ml) IV PRN; MIDAZOLAM HCL 2MG/2ML 2ml VIAL (1mg/ml) ONE; MORPHINE SULFATE 4 MG/ML SYR/VIAL IV PRN; MORPHINE SULFATE INJECTION 2 MG/ML SYRG IV PRN; ONDANSETRON HCL 4 MG/2 ML VIAL IV PRN; PROPOFOL 10 MG/ML 20 ML IV ONE; TERA10CA36 PO; ePHEDrine SULFATE 50 MG/ML AMP IV PRN; fentaNYL CITRATE 100 MCG/2 ML VL ONE
[2021-11-03 08:30] VITALS: BP 133/82
== END | disposition home or self-care (01) ==
LOC: SUR 06:09
PROVIDERS: ATTEND Urology
DX: R97.20 Elevated prostate specific antigen [PSA] (principal); I10 Essential (primary) hypertension; I25.10 Atherosclerotic heart disease of native coronary artery without angina pectoris; Z95.0 Presence of cardiac pacemaker; Z98.890 Other specified postprocedural states; Z79.899 Other long term (current) drug therapy
CPT/HCPCS: 55706; J0744; J1100; J1580; J2250; J2405; J2704; J3010; J7060